=== PATIENT | male | born 1975 | race Caucasian/White ===

== ENCOUNTER 2018-03-05 18:01 | Emergency (ER) | payer MEDICAID, SELFPAY ==
[2018-03-05 18:02] VITALS: BP 151/88; PULSE 91; RESP 18; TEMP 36.5; O2SAT 98; BMI 38.7
--- NOTE | 2018-03-05 18:15 | RAD_ITS ---
STUDY: X-RAY - RIGHT FOOT CLINICAL: Male, 42 years old. Pain TECHNIQUE: 3 view(s) of the foot. COMPARISON: None. FINDINGS: There is no evidence of fracture or dislocation. There are no significant degenerative changes. There is a small plantar calcaneal spur. There are no radiodense foreign bodies. RAD/Foot min 3 Views IMPRESSION: No fracture or dislocation. Small plantar calcaneal spur. No radiodense foreign bodies. Electronically Signed: Marcus Us, at 19:02 EDT Tel , Service support ,
--- NOTE | 2018-03-05 18:39 | ED.DCSUM_ITS ---
- ER Visit Summary Date of Service: 03/05/18 Chief Complaint: Right foot injury History of Present Illness: The patient is a 42 M who states that a few days ago he stepped on something in the bathroom and wonders if there is something still in his plantar aspect of his foot. He states it is painful when he walks. Does not know what it could be. States a few years ago he had a large piece of glass in his foot. Physical Examination: Afebrile vital signs stable The plantar aspect of the right foot appears rather normal. I do not see any swelling or erythema. I do not see any significant breaks in the skin or scab. No obvious infections. Most of the tenderness is right at the fifth MTP region. Test Results: Foot x-rays I do not see any obvious radiopaque foreign body. Emergency Department Course and Treatment: Patient was advised to pad the area if symptoms persist he will follow-up with podiatry. We did talk about the possibility that if there is something small and there could result in infection and he will monitor closely return if worsening. Impression: 1. Right foot pain (possible foreign body) This note was generated with [employer] dictation software. It may contain incorrect words, spelling, and punctuation that were not noted in review of the chart prior to signing ED Disposition - Plan for ED Patient: Disposition: Home or Assisted Living Chief Complaint: Lower Extremity Injury Instructions: ED Foreign Body Soft Tissue Referrals: German Gray DPM [STAFF PHYSICIAN] - (call to arrange follow up )
[2018-03-05 19:02] VITALS: BP 132/74; PULSE 84; RESP 16; O2SAT 95
== END 2018-03-05 19:03 | disposition home or self-care (01) ==
PROVIDERS: Emergency Provider Emergency Medicine
DX: M25.571 Pain in right ankle and joints of right foot (principal)
CPT/HCPCS: 73630; 99282

== ENCOUNTER 2021-04-04 01:10 | Emergency (ER) | payer MEDICAID, SELFPAY ==
[2021-01-20 09:34] VITALS: BMI 38.7
[2021-04-04 01:10] VITALS: BP 155/95; PULSE 63; RESP 18; TEMP 36.6; O2SAT 98; BMI 34.9
--- NOTE | 2021-04-04 01:14 | EX.ED.VIS.EY ---
HPI History of Present Illness Chief Complaint: Eye Problem Informant: patient Narrative Narrative: 45-year-old male presents the emergency department with concern for corneal abrasion. Patient states he was taking a shower and using a face scrub had an exfoliate her in it. Some of it got into his eye. He irrigated his eye and notes it is very red. He does have a foreign body sensation. He does not wear contacts or glasses. [facility] Medical History Encounter for examination required by Department of Transportation (DOT) Home Medications sertraline 50 mg PO DAILY 04/04/21 [History Last Taken Unknown] Allergy/AdvReac Type Severity Reaction Status Date / Time No Known Allergies Allergy Verified 03/05/18 18:04 Social History (Updated 04/04/21 @ 01:[address] Andrew Ramos DO) Smoking Status: Never smoker substance use type: does not use ROS ROS ED Constitutional Constitutional ED: Denies chills or weight loss Eyes Eyes: Reports other Details: Right eye redness foreign body sensation ; Denies change in vision or diplopia ENT ENT ED: Denies ear pain, rhinorrhea or sore throat Cardiovascular Cardiovascular: Denies chest pain, orthopnea, palpitations or racing heartbeat Respiratory/Chest Respiratory/Chest: Denies cough, dyspnea or orthopnea Gastrointestinal Gastrointestinal: Denies abdominal pain, diarrhea, nausea or vomiting Genitourinary Genitourinary ED: Denies dysuria, hematuria or urinary frequency Musculoskeletal Musculoskeletal: Denies arthralgias or myalgias Integumentary Denies abscess or rash Neurologic Neurologic: Denies headache(s) or weakness Psychiatric Psychiatric: Denies anxiety, depression, suicidal ideation or suicidal thoughts Endocrine Endocrinology: Denies polydipsia, polyphagia or polyuria Allergic/Immunologic Allergic/Immunologic ED: Denies mouth swelling, tongue swelling or urticaria EXAM Physical Exam Const Vital Signs: 04/04/21 01:10 Temperature 97.8 F Temperature Source Temporal Pulse Rate 63 Respiratory Rate 18 Blood Pressure 155/95 H Blood Pressure Mean 115 Pulse Ox 98 Oxygen Delivery Method Room Air Positive well nourished and well developed General Appearance ED: well developed HEENT Reports normocephalic, head/scalp atraumatic and moist mucous membranes atraumatic Nose: external nose normal Eyes PERRL and EOMs intact bilaterally Eyes Narrative: Right eye demonstrates conjunctival injection. There is no corneal abrasion seen with fluorescein staining. Negative Ashish sign. There is no obvious foreign body with eversion of the eyelids. Neck no lymphadenopathy, supple and no JVD Resp normal respiratory effort and clear to auscultation bilaterally Cardio regular rate, regular rhythm and no murmurs GI normal to inspection, nondistended, normoactive bowel sounds and non-tender Palpation: soft Back/Spine no CVA tenderness and normal ROM Extremity normal to inspection General Extremety ED: Negative for edema General Extremity: Negative for edema Neuro oriented x3 and CN's II-XII intact bilaterally Sensorium / Orientation: alert Motor Exam: strength 5/5 throughout Psych mental status grossly normal Mood & Affect: Negative for depressed or tearful Skin no rashes or lesions noted and no wounds MDM MDM MDM Narrative Medical decision making narrative: Tetracaine was used to numb the eye. Eye was examined in light and with fluorescein staining. No obvious abrasion was seen. Will use erythromycin ophthalmic ointment to help soothe the eye tonight. He may use it again tomorrow if he continues to have some irritation. At this point appears to be more of a chemical irritation. Discharge Plan Triage Chief Complaint: Eye Problem ED Provider: Andrew Ramos Dx/Rx/DC Orders Clinical Impression: Acute chemical conjunctivitis of right eye Instructions: Conjunctivitis Caused by Irritation Prescriptions: No Action sertraline 50 mg tablet 50 mg PO DAILY RF: 0 Primary Care Provider: Douglas Jackson Referrals: Janet Hurley MD [STAFF PHYSICIAN] - As Needed (For ophthalmology.) Douglas Jackson MD [Primary Care Provider] - Activity Restrictions/Additional Instructions: You may use the antibiotic ointment Disposition Disposition: Home, Self Care
[2021-04-04] MEDS: Tetracaine 0.5% Ophthalmic Bottle 1 DRP LEFT EYE (01:31)
[2021-04-04] MEDS: Fluorescein 1 MG STRIP 1 STRIP LEFT EYE (01:31)
[2021-04-04] MEDS: Erythromycin Base 1 OPTH.TUBE 1 APPLIC RIGHT EYE (01:46)
== END 2021-04-04 01:46 | disposition home or self-care (01) ==
PROVIDERS: Emergency Provider Emergency Medicine; PCP Family Medicine
DX: H10.211 Acute toxic conjunctivitis, right eye (principal); Z79.899 Other long term (current) drug therapy
CPT/HCPCS: 99282

== ENCOUNTER 2021-09-20 22:53 | Emergency (ER) | payer MEDICAID, SELFPAY ==
[2021-09-20 22:53] VITALS: BP 154/99; PULSE 75; RESP 16; TEMP 36.4; O2SAT 97; BMI 38.7
[2021-09-21 04:09] VITALS: PULSE 65; RESP 15; TEMP 36.6; O2SAT 100
--- NOTE | 2021-09-21 04:23 | EDS_ITS ---
HPI History of Present Illness Chief Complaint: Back Informant: patient Onset/Context/Timing Onset: Weeks (1) Context: Gradual Onset Timing: Continuous Quality: Aching Location: Lumbar (Left paraspinal) Current Severity: Moderate Maximum Severity: Moderate Worsened by: improves with Movement, Ambulation and Bending Relieved by: Sitting and Remaining Still Narrative Narrative: Patient recovered from COVID-19, and near the end of his quarantine, he started getting up and around more, he was lying around a lot, and started having low back pain in his left side without radiation that started gradually, and getting worse now that he has been at work for the past 3 days. Tylenol and ibuprofen are not helping a lot he was looking for something else. He denies any bowel or bladder dysfunction. He feels muscle spasms in his left low back. No radiation into the legs. [facility] Medical History Encounter for examination required by Department of Transportation (DOT) Home Medications sertraline 50 mg PO DAILY 04/04/21 [History Last Taken Unknown] cyclobenzaprine 10 mg PO TID PRN #20 tablet 09/21/21 [Rx Last Taken Unknown] naproxen 500 mg PO BID PRN #20 tab 09/21/21 [Rx Last Taken Unknown] Allergy/AdvReac Type Severity Reaction Status Date / Time No Known Allergies Allergy Verified 09/20/21 22:56 Social History Smoking Status: Never smoker substance use type: does not use ROS ROS ED Constitutional Constitutional ED: Denies chills or fever(s) Gastrointestinal Gastrointestinal: Denies abdominal pain, constipation, fecal incontinence, nausea or vomiting Genitourinary Genitourinary ED: Reports other Details: no urinary retention ; Denies abdominal discomfort or urinary incontinence Musculoskeletal Musculoskeletal: Reports as per HPI and back pain; Denies neck pain Integumentary Denies rash or wounds Neurologic Neurologic: Denies headache(s), paresthesias or weakness EXAM Physical Exam Const Vital Signs: 09/20/21 22:53 09/21/21 04:09 Temperature 97.6 F L 97.8 F Temperature Source Temporal Temporal Pulse Rate 75 65 Respiratory Rate 16 15 Blood Pressure 154/99 H Blood Pressure Mean 117 Pulse Ox 97 100 Oxygen Delivery Method Room Air Room Air Positive well nourished and well developed General Appearance ED: well developed and NAD HEENT Negative for trauma or tenderness Eyes PERRL and EOMs intact bilaterally Neck full ROM and supple GI normal to inspection, nondistended, normoactive bowel sounds, soft to palpation and non-tender Back/Spine normal to inspection Lumbar Spine / Lower Back: ROM limited, paraspinal muscle tenderness left and straight leg raise negative bilaterally Extremity normal to inspection, full ROM and no pedal edema Neuro oriented x3 and no sensory deficits noted Sensorium / Orientation: alert Motor Exam: strength 5/5 throughout and clonus absent Deep Tendon Reflexes: Rt Patellar (L4): 2+, Lt Patellar (L4): 2+, Rt Ankle (S1): 2+ and Lt Ankle (S1): 2+ Deep Tendon Reflexes Back: Rt Patellar (L4): 2+, Lt Patellar (L4): 2+, Rt Ankle (S1): 2+ and Lt Ankle (S1): 2+ Plantar Reflex: Downgoing: bilateral Psych mental status grossly normal and thought process normal Skin no rashes or lesions noted and no wounds MDM MDM MDM Narrative Medical decision making narrative: Mildly tender in the left lumbosacral area, but not the SI joint actually higher than this. Paraspinal no vertebral tenderness. Reassured, will give him Ultram and cyclobenzaprine here but the combination of medication should not be continued, but I do not think one time will harm him. Will prescribe him Naprosyn and cyclobenzaprine to use at home as needed. He declined injections here. Discharge Plan Triage Chief Complaint: Back ED Provider: Amish Mix Dx/Rx/DC Orders Clinical Impression: Musculoskeletal back pain Instructions: ED Back and Neck Pain, General Prescriptions: New cyclobenzaprine [cyclobenzaprine] 10 MG tablet 10 mg PO TID PRN (Reason: Muscle Spasm) Qty: 20 RF: 0 naproxen 500 MG tablet 500 mg PO BID PRN Qty: 20 RF: 0 No Action sertraline 50 mg tablet 50 mg PO DAILY RF: 0 Primary Care Provider: Douglas Jackson Referrals: Douglas Jackson MD [Primary Care Provider] - 5-7 Days Disposition Disposition: Home, Self Care
[2021-09-21] MEDS: cycloBENZAPRine HCl 10 MG Tablet PO (04:30)
[2021-09-21] MEDS: traMADol 50 MG Tablet PO (04:30)
== END 2021-09-21 04:32 | disposition home or self-care (01) ==
PROVIDERS: Emergency Provider Emergency Medicine; PCP Family Medicine
DX: M54.50 Low back pain, unspecified (principal); M62.838 Other muscle spasm; Z86.16 Personal history of COVID-19
CPT/HCPCS: 99282

== ENCOUNTER 2022-01-04 14:40 | Outpatient (CLI) | payer MEDICAID, SELFPAY | END 2022-01-04 23:59 | disposition home or self-care (01) | PROVIDERS: PCP Family Medicine; Visit Provider Psychiatry & Neurology Neurology | DX: R41.89 Other symptoms and signs involving cognitive functions and awareness (principal) | CPT/HCPCS: 36415 ==

== ENCOUNTER 2022-01-14 08:06 | Emergency (ER) | payer MEDICAID, SELFPAY ==
[2022-01-14 08:06] VITALS: BP 188/119; PULSE 56; RESP 18; TEMP 36.4; O2SAT 99; BMI 38.0
--- NOTE | 2022-01-14 08:27 | VDLE_ITS ---
Reason For Study: Pain Procedure LEFT This is a venous duplex using B-mode, color GSV is normal. flow and spectral Doppler. CFV is compressible, spontaneous, phasic, Exam performed portable in ED. competent, and demonstrates normal A preliminary report was called and/or faxed augmentation. to [place]. FV is compressible, spontaneous, phasic, competent and demonstrates normal augmentation. POP V is compressible, spontaneous, phasic, competent and demonstrates normal augmentation. T/P Trunk is compressible. PTV is compressible. LT PerV is compressible. VL/Venous Duplex US, Unilateral Interpretation Summary Deep veins of the left lower extremity are patent and compressible segmentally. There is no evidence of left lower extremity deep vein thrombosis. Valvular competence appears intac t within the proximal deep venous system on the left . The left great saphenous vein appears patent a nd compressible segmentally. Ordering Physician: Federico Garibay Referring Physician: Antwan Jackson Performed By: Zakiya Jenkins RVT
--- NOTE | 2022-01-14 08:27 | RAD_ITS ---
STUDY: X-RAY CHEST REASON FOR EXAM: Male, 46 years old. Shortness of breath TECHNIQUE: PA and lateral views of the chest. COMPARISON: None. FINDINGS: The lungs are clear and expanded. There is no demonstrated pleural abnormality. Normal size heart. Normal mediastinum and carlitos. Normal visualized pulmonary arteries. Normal visualized aortic arch and descending thoracic aorta. Normal visualized thoracic spine. Normal visualized ribs, clavicles, and shoulders. There is no demonstrated abnormality of the visualized soft tissue structures of the upper abdomen. RAD/Chest PA and Lateral IMPRESSION: Normal x-ray examination of the chest. Electronically Signed: Laureano Alfaro MD at 9:07 EDT ,
--- NOTE | 2022-01-14 08:27 | EKG12_ITS ---
Test Reason : NUMBNESS Blood Pressure : / mmHG Vent. Rate : 061 BPM Atrial Rate : 061 BPM P-R Int : 136 ms QRS Dur : 090 ms QT Int : 420 ms P-R-T Axes : 028 -19 044 degrees QTc Int : 422 ms Normal sinus rhythm Inferior infarct , age undetermined , cannot be excluded Abnormal ECG Confirmed by BERTRAND HUYNH, LIBORIO ([id number]), graphic editor LASHANDA YOUSSEF ([id number]) on 01/17/2022 9:14:38 AM Referred By: MASOOD Confirmed By:LIBORIO THURSTON MD
--- NOTE | 2022-01-14 08:29 | EDS_ITS ---
HPI History of Present Illness Chief Complaint: Dizziness Informant: patient Narrative Narrative: Patient has a few concerns today. He has been having symptoms for about 3 days. He notices an area on his left lateral proximal lower leg that is a bit sore. Its not swollen. If he kneels or bends it tends to make it worse. He has no known injury. He has no history of travel, surgery, personal or family history of DVT or PE. He is also noticed that when he is gotten up quickly such as getting out of bed he feels just mildly dizzy but not off balance. It is very subtle. He may be a slight shortness of breath with this. No chest pain or pressure at any time. He is also concerned that he does have a strong family history of blood pressure. His blood pressure is up today. His father also had a heart attack at his age. Patient did have a recent checkup with blood work and all was evidently normal other than low vitamin D level. He overall feels well at this time. [facility] Medical History Encounter for examination required by Department of Transportation (DOT) Home Medications sertraline 50 mg PO DAILY 04/04/21 [History Last Taken Unknown] Allergy/AdvReac Type Severity Reaction Status Date / Time No Known Allergies Allergy Verified 01/14/22 08:08 Social History Smoking Status: Never smoker substance use type: does not use ROS ROS ED Constitutional Constitutional ED: Denies chills or fever(s) Eyes Eyes: Denies change in vision ENT ENT ED: Denies rhinorrhea or sore throat Cardiovascular Cardiovascular: Denies chest pain, palpitations or racing heartbeat Respiratory/Chest Respiratory/Chest: Reports dyspnea; Denies cough, dyspnea on exertion or sputum Gastrointestinal Gastrointestinal: Denies diarrhea, nausea or vomiting Genitourinary Genitourinary ED: Denies dysuria Musculoskeletal Musculoskeletal: Reports other Details: See history of present illness ; Denies myalgias Integumentary Denies abscess or rash Neurologic Neurologic: Denies headache(s) or paresthesias Endocrine Endocrinology: Denies polydipsia or polyuria Allergic/Immunologic Allergic/Immunologic ED: Denies mouth swelling or urticaria EXAM Physical Exam Const Vital Signs: 01/14/22 08:06 04/23/22 08:44 01/14/22 10:43 Temperature 97.5 F L Temperature Source Temporal Pulse Rate 56 L 71 Respiratory Rate 18 15 Respiratory Effort Normal Non-Labored Respiratory Pattern Normal Blood Pressure 188/119 H 134/62 H Blood Pressure Mean 142 86 Pulse Ox 99 99 Oxygen Delivery Method Room Air Room Air 01/14/22 11:28 Temperature Temperature Source Pulse Rate 60 Respiratory Rate 20 H Respiratory Effort Respiratory Pattern Blood Pressure 141/102 H Blood Pressure Mean 115 Pulse Ox 94 Oxygen Delivery Method Room Air Positive well nourished and well developed Constitutional Narrative: Patient sitting quietly in bed. He looks comfortable. Breathing is easy and unlabored. General Appearance ED: well developed and NAD; Negative for cyanotic or diaphoretic HEENT Reports moist mucous membranes Negative for trauma Eyes EOMs intact bilaterally Neck no lymphadenopathy Chest Wall inspection of chest normal and palpation of chest normal Resp normal respiratory effort and clear to auscultation bilaterally Resp Narrative: No pain with a deep breath. Effort and Inspection: Negative for pain with movement Auscultation: Negative for rales, rhonchi or wheezes Cardio regular rate, regular rhythm and no murmurs GI normal to inspection, nondistended, normoactive bowel sounds and non-tender Palpation: soft Back/Spine no CVA tenderness Extremity normal to inspection Extremity Narrative: Patient complains of some soreness just posterior to the fibular head area and a little distal to that. But is not really tender. There is no swelling. There is no distended veins. No skin changes. Distal pulses are normal and intact. No tenderness along the deep venous system. No asymmetry with the other side. General Extremety ED: Negative for edema or tenderness General Extremity: Negative for edema Neuro Sensorium / Orientation: alert Psych mental status grossly normal Skin no rashes or lesions noted MDM MDM MDM Narrative Medical decision making narrative: Patient's blood pressure is rechecked and is much better at 136/92. Patient's talk to me. He did just recently have blood work. But this is part of a work-up related to several changes that have occurred over the last few months. He does not have a history of psychiatric illness. However, he has had episodes where he is somewhat aggressive then he will be highly anxious and his mood is fluctuating dramatically. His behavior is a little bit different. He has not been complaining of headaches. They have seen a counselor for this. He has appointment with psychiatrist. He has referral to a neurologist. There is planned MRI and further work-up but a lot of this is not likely to occur until April. She states he is acting normally now but the symptoms can change dramatically. With his episode of nonspecific dizziness and this I think is reasonable to CT his head also while we are here to make sure we do not see any mass lesion that could be causing some of the the background symptoms. Cer marielnly an MRI is a more sensitive study but I do not have access to that at this time and the patient is neurologically intact and normal right now. Again, blood work shows no marked abnormalities. CT scan of the head did not show any acute intracranial process. Chest x-ray was negative. Patient is comfortable following up with his physician. We were able to get the ultrasound of the leg that was negative for DVT. Lab Data Attestation: I reviewed the patient's lab results. Labs: Laboratory Results - last 24 hr 01/14/22 01/14/22 08:39 08:39 WBC 7.9 RBC 5.73 Hgb 16.1 Hct 46.4 MCV 81.0 MCH 28.1 MCHC 34.7 RDW Std Deviation 40.4 RDW Coeff of Poppy 14.1 Plt Count 181 MPV 9.5 Immature Gran % (Auto) 0.500 Neut % (Auto) 64.8 Lymph % (Auto) 25.7 [place] % (Auto) 7.1 Eos % (Auto) 1.5 Baso % (Auto) 0.4 Absolute Neuts (auto) 5.1 Absolute Lymphs (auto) 2.02 Nucleated RBC % 0 Sodium 141 Potassium 3.4 L Chloride 109 H Carbon Dioxide 29.0 Anion Gap 3 L BUN 19 H Creatinine 0.95 Estim Creat Clear Calc 96.00 Est GFR (MDRD) Af Amer 111 Est GFR (MDRD) Non-Af 91 BUN/Creatinine Ratio 20.0 Glucose 128 H Calcium 8.6 Troponin I High Sens 6 Radiography Diagnostic Testing: Clinical Impression(s) from Imaging Studies Chest X-Ray 01/14/22 08:27 IMPRESSION: Normal x-ray examination of the chest. Electronically Signed: Laureano Alfaro MD at 9:07 EDT , Brain CT 01/14/22 09:39 IMPRESSION: 1. Mild left posterior parietal scalp soft tissue swelling. 2. No acute intracranial process. Electronically Signed: Laureano Alfaro MD at 10:35 EDT , EKG Initial EKG: Comments: EKG done for mild transient dyspnea and bradycardia. EKG read by me shows a normal sinus rhythm with overall rate of 61. No ventricular ectopy. Nonspecific ST changes but no sign of infarct or ischemia acutely. MS interval, QRS duration and QTc normal. Discharge Plan Triage Chief Complaint: Dizziness ED Provider: Federico Garibay Dx/Rx/DC Orders Clinical Impression: Elevated blood pressure reading, Left leg pain Instructions: ED Pain, Acute, Uncertain Cause Prescriptions: No Action sertraline 50 mg tablet 50 mg PO DAILY RF: 0 Primary Care Provider: Douglas Jackson Referrals: Douglas Jackson MD [Primary Care Provider] - 3-5 Days Disposition Disposition: Home, Self Care
[2022-01-14 08:53] LABS: Absolute Lymphocyte Count 2.02 X10^3/uL (0.83-4.51); Absolute Neutrophil Count 5.1 X10^3/uL (2.0-7.7); Basophil# 0.03 X10^3/uL; Basophil% 0.4 % (0-1); Eosinophil# 0.12 X10^3/uL; Eosinophils% 1.5 % (0-5); Hematocrit 46.4 % (40-54); Hemoglobin 16.1 g/dL (13.0-16.5); Lymphocyte # 2.02 X10^3/ul (0.83-4.51); Lymphocyte % 25.7 % (19-41); Mean Corp Hgb Conc 34.7 g/dL (32-36); Mean Corpuscular Hgb 28.1 pg (27.0-32.0); Mean Platelet Vol. 9.5 fl (6.2-12.0); Monocyte# 0.56 X10^3/uL; Monocyte% 7.1 % (0-10); NRBC Flagged by Analyzer 0 % (0-5); Neutrophil # 5.09 X10^3/uL (2.7-7.7); Neutrophil % 64.8 % (47-70); Platelet Count 181 K/mm3 (150-450); RBC Distribution Width CV 14.1 % (11.6-14.6); RBC Distribution Width SD 40.4 fl (35.1-43.9); Red Blood Count 5.73 M/mm3 (4.6-6.2); White Blood Count 7.9 K/mm3 (4.4-11.0)
[2022-01-14 09:10] LABS: Anion Gap 3 (5-15); BUN 19 mg/dL (7-18); Calcium,Total 8.6 mg/dL (8.5-10.1); Chloride 109 mmol/L (98-107); Creatinine, Serum 0.95 mg/dL (0.70-1.30); EST Glomerular Filtration Rate 91 mL/min (>60); Est Glom Filt Rate - Afr Amer 111 mL/min (>60); Glucose 128 mg/dL (74-106); Potassium 3.4 mmol/L (3.5-5.1); Sodium Level 141 mmol/L (136-145); Troponin-I HS 6 pg/mL (3.0-78.0)
--- NOTE | 2022-01-14 09:39 | CT_ITS ---
STUDY: CT BRAIN WITHOUT CONTRAST REASON FOR EXAM: Male, 46 years old. Dizziness RADIATION DOSAGE (If Supplied By Facility): CTDIvol = ( 47.06 ) mGy, DLP = ( 837.39 ) mGycm TECHNIQUE: Transaxial CT imaging of the brain was performed without administration of intravenous contrast material. Individualized dose optimization techniques were used for this CT. COMPARISON: No relevant priors. FINDINGS: Focal left posterior parietal scalp soft tissue swelling. Normal calvarium. Normal size ventricles and extra-axial spaces for the patient''s age. Normal white matter tracts of the cerebral hemispheres. Normal basal ganglia and thalami. Normal brainstem. Normal cerebellum. There is no intracranial hemorrhage. There are no findings of an acute ischemic infarction. Normal visualized paranasal sinuses. CT/Brain/Head without Contrast IMPRESSION: 1. Mild left posterior parietal scalp soft tissue swelling. 2. No acute intracranial process. Electronically Signed: Laureano Alfaro MD at 10:35 EDT ,
[2022-01-14 10:43] VITALS: BP 134/62; PULSE 71; RESP 15; O2SAT 99
[2022-01-14 11:28] VITALS: BP 141/102; PULSE 60; RESP 20; O2SAT 94
[2022-01-14 12:09] VITALS: BP 143/97; PULSE 63; RESP 18; O2SAT 98
== END 2022-01-14 12:09 | disposition home or self-care (01) ==
PROVIDERS: Emergency Provider Emergency Medicine; PCP Family Medicine; Visit Provider Emergency Medicine
DX: R03.0 Elevated blood-pressure reading, without diagnosis of hypertension (principal); M79.605 Pain in left leg; R42 Dizziness and giddiness; Z79.899 Other long term (current) drug therapy
CPT/HCPCS: 70450; 71046; 80048; 84484; 85025; 93005; 93971; 99284